=== PATIENT | male | born 1995 | race Hispanic/Latino ===

== ENCOUNTER 2017-09-09 22:06 | Emergency (ER) | payer SELFPAY ==
[~2017-09-09] VITALS: Ht 170.2 cm; Wt 127.2 kg
[~2017-09-09 22:06] MED LIST: MOTRIN600 MG PO
[2017-09-09] MEDS ORDERED: CIPRODEX OTIC7.5 ML BOTH EARS (22:45)
[2017-09-09 23:01] VITALS: BP 148/94
== END 2017-09-09 23:06 | disposition home or self-care (01) ==
LOC: EME 22:06
DX: H60.91 Unspecified otitis externa, right ear (principal)
CPT/HCPCS: 99281; 99283